=== PATIENT | female | born 1960 | race Hispanic/Latino ===

== ENCOUNTER 2024-10-04 21:52 | Inpatient (IN) | payer OTHER, SELFPAY ==
[2024-10-04] VITALS (9 sets, daily range): BP systolic 116–159; BP diastolic 60–78; BMI 23.9
[2024-10-04 17:40] LABS: % Basophils 0.9 % (0-2); % Eosinophils 2.7 % (0-6); % Immature Granulocytes 0.3 % (0-0.5); % Lymphocytes 26.3 % (20.5-51.1); % Monocytes 7.4 % (1.7-9.3); % Neutrophils 62.4 % (42.2-75.2); Absolute Basophils 0.1 10^3/uL (0-0.2); Absolute Eosinophils 0.2 10^3/uL (0-0.7); Absolute Monocytes 0.6 10^3/uL (0.1-0.6); Absolute Neutrophils 4.7 10^3/uL (1.4-6.5); Hematocrit 36.7 % (37.0-47.0); Hemoglobin 12.1 g/dL (12.0-16.0); Mean Corpuscular Volume 94.1 fL (81.0-99.0); Mean Platelet Volume 8.8 fL (7.4-10.4); Nucleated Red Blood Cells % 0 %; Platelet Count 255 10^3/uL (130-400); Red Cell Dist. Width 13.1 % (11.5-14.5); White Blood Cell Count 7.5 10^3/uL (4.8-10.8)
--- NOTE | 2024-10-04 17:41 | ED.GENMED ---
History of Present Illness
<Claire Taylor PA-C - Last Filed: 10/04/24 21:34>
General
Chief Complaint: Cardiac Symptoms
Source: patient
Exam Limitations: none
Time Seen by Provider: 10/04/24 17:40
Nursing documentation reviewed up to this point in time: agreed with
History of Present Illness
History of Present Illness:
63-year-old female with past medical history of hypertension presents emergency department today with concerns of left lateral neck discomfort and swelling, chest pain, and left upper extremity pain. Patient that symptoms started 2 days ago. She
has associated sinus pressure. Patient states that the pain from her neck will radiate down her left arm and feels as though radiate into her chest. The pain comes and goes at random. Patient has not had any fevers or chills. Patient has not had
any shortness of breath. Patient is from [place] and has been living here in [place] with her daughter recently. She denies any trauma to the head or neck, denies any trauma to the upper extremity. Patient denies any trouble swallowing.
Patient denies any exacerbation of pain with movement of her neck.
Review of Systems
<Claire Taylor PA-C - Last Filed: 10/04/24 21:34>
Review of Systems
All Other Systems: ROS reviewed and negative except as documented in HPI and ROS
Phy Exam
<Claire Taylor PA-C - Last Filed: 10/04/24 21:34>
Physical Exam
Physical Exam:
General: Patient is well appearing and in no acute distress; non-toxic
Skin: Warm and dry, no rashes or lesions
Head: Normocephalic, atraumatic. Erythema and tenderness noted surrounding the left mastoid process
Eyes: Sclera non-icteric. EOMs intact. PERRLA.
Ears: Bilateral TMs are non-erythematous, non-bulging. External auditory canals clear.
Mouth: Mild pharyngeal erythema noted, uvula midline
Cardiac: Regular rate and rhythm, no murmurs, no tenderness to palpation of the external chest wall
Peripheral Vascular: No lower extremity swelling or edema
Pulm: Normal respiratory effort, no wheezes, rales, or rhonchi
Musculoskeletal: No bony tenderness to palpation of the left upper extremity, no pain with passive ROM
Neuro: CN II-XII intact, no focal neurologic deficits.
Psychiatric: Appropriate mood and affect.
Course
<Claire Taylor PA-C - Last Filed: 10/04/24 21:34>
Orders/Labs/Results
Orders:
Orders
10/04/24 16:45
Electrocardiogram (*1) Urgent
Reason for Study: Palpitations
EKG- Treatment ONCE
10/04/24 17:32
CMP [Comprehensive Metabolic Panel] Urgent
Complete Blood Count/With Diff Urgent
Troponin I Urgent
10/04/24 18:13
CR Chest - 2 Views Urgent
Comment:
Reason For Exam: substernal chest pain
10/04/24 19:13
CT Neck With Iv Contrast Urgent
Comment:
Reason For Exam: left mastoid swelling/pain
10/04/24 21:10
Piperacillin/Tazo 3.375 Gram [Zosyn] 3.375 gram in 50 ml IV NOW
10/04/24 21:12
Mumps Virus IgG Urgent
Mumps Virus IgM [S] Urgent
Abnormal Lab Results
10/04/24
17:32
RBC 3.90 L 10^6/uL
(4.20-5.40)
Hct 36.7 L %
(37.0-47.0)
BUN 22 H mg/dl
(7-17)
Glucose 123 H mg/dl
(70-99)
Total Protein 8.3 H g/dl
(6.3-8.2)
11/24/24 17:32
10/04/24 17:32
Vital Signs
Initial and Last Documented VS:
Initial Vital Signs
Temp Pulse Resp BP Pulse Ox
98.3 F 73 20 150/78 99
10/04/24 16:50 10/04/24 16:50 10/04/24 16:50 10/04/24 16:50 10/04/24 16:50
Last Documented Vital Signs
Temp Pulse Resp BP Pulse Ox
98.3 F 71 16 130/69 98
10/04/24 16:50 10/04/24 19:45 10/04/24 19:45 10/04/24 19:37 10/04/24 19:45
<Gene Goldberg, DO - Last Filed: 10/04/24 21:32>
Orders/Labs/Results
Orders:
Orders
10/04/24 16:45
Electrocardiogram (*1) Urgent
Reason for Study: Palpitations
EKG- Treatment ONCE
10/04/24 17:32
CMP [Comprehensive Metabolic Panel] Urgent
Complete Blood Count/With Diff Urgent
Troponin I Urgent
10/04/24 18:13
CR Chest - 2 Views Urgent
Comment:
Reason For Exam: substernal chest pain
10/04/24 19:13
CT Neck With Iv Contrast Urgent
Comment:
Reason For Exam: left mastoid swelling/pain
10/04/24 21:10
Piperacillin/Tazo 3.375 Gram [Zosyn] 3.375 gram in 50 ml IV NOW
10/04/24 21:12
Mumps Virus IgG Urgent
Mumps Virus IgM [S] Urgent
Abnormal Lab Results
10/04/24
17:32
RBC 3.90 L 10^6/uL
(4.20-5.40)
Hct 36.7 L %
(37.0-47.0)
BUN 22 H mg/dl
(7-17)
Glucose 123 H mg/dl
(70-99)
Total Protein 8.3 H g/dl
(6.3-8.2)
10/04/24 17:32
10/04/24 17:32
Vital Signs
Initial and Last Documented VS:
Initial Vital Signs
Temp Pulse Resp BP Pulse Ox
98.3 F 73 20 150/78 99
10/04/24 16:50 10/04/24 16:50 10/04/24 16:50 10/04/24 16:50 10/04/24 16:50
Last Documented Vital Signs
Temp Pulse Resp BP Pulse Ox
98.3 F 71 16 130/69 98
10/04/24 16:50 10/04/24 19:45 10/04/24 19:45 10/04/24 19:37 10/04/24 19:45
Silvialt;Claire Taylor PA-C - Last Filed: 10/04/24 21:34>
MDM/Problems Addressed
Differential Diagnosis Includes:
ddx include ACS, aortic dissection, viral pharyngitis, mastoiditis, parotitis, mumps
MDM/Problems Addressed:
63-year-old female presents emergency department today with left lateral neck discomfort and swelling. She also has chest pain left upper extremity pain. On physical exam, there is erythema and mild swelling noted on the left lateral neck around
the mastoid process as well as swelling noted around the parotid glands bilaterally. Patient is maintaining her airway, she is no shortness of breath, she is hemodynamically stable. She is sent for CAT scan which demonstrates multiple inflammatory
changes within the neck involving the musculature of the neck. However there is no radiographic evidence of suggest mastoiditis. There is also soft tissue attenuation of the subcutaneous fat noted abutting the posterior margin of the left parotid
gland which may demonstrate inflammatory changes at the parotid secondary to infection. Discussed findings with family. Will start patient on Zosyn and refer for admission.
Chronic conditions affecting care:
n/a
Acute Exacerbation and/or Progression of Chronic Illness:
n/a
<Claire Taylor PA-C - Last Filed: 10/04/24 21:34>
*Pulse Oximetry
Patient hypoxic: no
*EKG
Interpreted by ED Provider?: Yes
EKG Intrepretation Date: 10/04/24
Interpretation: normal
Comparison EKG: no changes
Heart Rate: 71
Rate: normal
Rhythm: sinus
[place]: normal axis
Interval: normal interval
*Critical Care Note
Total Time (30-74mins, 75-104mins- exclusive of procedures): Not Applicable
Data Reviewed
Review of Other/Old Records Reveals: Records (No previous ER physician documentation to review) and Discharge Summary (No discharge summary in [facility] to)
Source: patient and records
<Claire Taylor PA-C - Last Filed: 10/04/24 21:34>
Patient Management
Escalation/DeEscalation of care consider admission/obs:
Patient referred for admission
ED Attending Note
<Claire Taylor PA-C - Last Filed: 10/04/24 21:34>
-
Portions of this chart may have been created with voice recognition software.� Occasional wrong word or��sound alike� substitutions may have occurred due to the inherent limitations of voice recognition software.
<Gene Goldberg DO - Last Filed: 10/04/24 21:32>
ED Attending Note
Patient seen and examined by attending physician: Yes
I performed a history and physical exam of patient and discussed management with resident, I reviewed resident's note and agree with documented findings and plan of care.: Yes
ED Attending Note:
I reviewed and agree with history and treatment plan by Claire Taylor. My exam revealed 63-year-old female in no acute distress. Lungs clear, no murmur, normal S1, S2. No S3, S4. TMs normal bilaterally. Mild erythema left posterior auricular
area. Normal EKG, normal troponin. Will image CT neck.
CT neck revealing inflammation of muscle, cellulitis possible proctitis. Will give IV Zosyn, admit to hospitalist for possible deep space infection.
Discharge Plan
Departure
Patient Disposition: Admit
Date of Disposition: 10/04/24
Time of Disposition: 21:15
Admit to: Med/Surg
Presentation/result/management discussed w/ accepting MD/DO: Hospitalist
Patient with high blood pressure during this ER visit?: Yes
Condition: Fair
Discharge Problem:
Neck infection, Chest pain
Referrals:
UNKNOWN - PT DOES,NOT KNOW [Family Provider] -
Interventions
Interventions:
*Risk Screen - Suicide Last Done: 10/04/24 16:50
*General Assessment Last Done: 10/04/24 16:50
*Neglect/Abuse Screening Last Done: 10/04/24 16:50
ED- Fall Risk Assessment Last Done: 10/04/24 17:16
*ED COVID-19 Vaccine History Last Done: 10/04/24 17:15
ED- Pulmonary Assessment Last Done: 10/04/24 17:16
ED- Cardiac Assessment Last Done: 10/04/24 17:16
Discharge Date and Time
Print Language: NIUEAN
[2024-10-04 17:57] LABS: ALT (SGPT) 27 U/L (0-35); AST (SGOT) 30 U/L (14-36); Albumin 4.8 g/dl (3.5-5.0); Alkaline Phosphatase 119 U/L (38-126); Blood Urea Nitrogen 22 mg/dl (7-17); Calcium 9.7 mg/dl (8.4-10.2); Carbon Dioxide 29 mmol/L (22-30); Chloride 102 mmol/L (98-107); Estimated Creatinine Clearance 74 ml/min; Glucose 123 mg/dl (70-99); Potassium 5.1 mmol/L (3.5-5.1); Sodium 142 mmol/L (135-145); Total Bilirubin 0.4 mg/dl (0.2-1.3); Total Protein 8.3 g/dl (6.3-8.2); eGFR > 60.00
[2024-10-04 18:09] LABS: Troponin I < 0.012 ng/ml
--- NOTE | 2024-10-04 21:38 | HPS.HSE ---
Family Physician
-
Family Physician: NOT KNOW UNKNOWN - PT DOES
Chief Complaint
-
left sided neck pain, left upper ext pain, and chest pain
History of Present Illness
63F HX HTN pw left sided neck pain, left upper ext pain, and chest pain past 2days
- denied recent injury
- denied any needel injection
- afebrile
- WBC is WNL
Medical History
Past Medical History
Past Medical History: Reports HTN
Past Surgical History: Reports None
Social History
Tobacco: Non-smoker
Alcohol: None
Family History
Family History: Not pertinent
Allergies / Home Medications
Allergies reflects when Allergies were last updated in [employer].
Home Medications with original date entered in [employer]
Allergy/Medication List:
Allergies
Allergy/AdvReac Type Severity Reaction Status Date / Time
No Known Allergies Allergy Verified 10/04/24 16:53
If medication reconciliation has not been performed, why?: Medication List N/A
Review of Systems
-
Constitutional: Reports No Symptoms
EENT: Reports See HPI
Respiratory: Reports No Symptoms
Cardiac: Reports No Symptoms
Abdomen/GI: Reports No Symptoms
: Reports No Symptoms
Musculoskeletal: Reports No Symptoms
Skin: Reports No Symptoms
Neurological: Reports No Symptoms
Endocrine: Reports No Symptoms
Hematologic/Lymphatic: Reports No Symptoms
Psych: Reports No Symptoms
Physical Exam
Vital Signs
Vital Signs
Temp Pulse Resp BP Pulse Ox
98.3 F 71 16 130/69 98
10/04/24 16:50 10/04/24 19:45 10/04/24 19:45 10/04/24 19:37 10/04/24 19:45
Physical Exam
General: Well Developed, Well Nourished and No Apparent Distress
HEENT: NormoCephalic, Moist mucous membranes and Atraumatic
Respiratory: Clear
Cardiac: S1/S2 and Regular Rhythm; No Murmur or Rub
GI: Soft, Non Tender, Non Distended and Normal Bowel Sounds; No Organomegaly
Rectal: Deferred by Provider
Musculoskeletal: No Clubbing, No Cyanosis and No Edema
Skin: No Rash
Neuro: Nonfocal/grossly intact
Laboratory Results
-
10/04/24 17:32
10/04/24 17:32
Laboratory Results
Total Bilirubin 0.4 mg/dl (0.2-1.3) 10/04/24 17:32
AST 30 U/L (14-36) 10/04/24 17:32
ALT 27 U/L (0-35) 10/04/24 17:32
Alkaline Phosphatase 119 U/L (38-126) 10/04/24 17:32
Troponin I < 0.012 ng/ml 10/04/24 17:32
Data Reviewed
-
Diagnostic Radiology: Report Reviewed by me
CT Scan: Report Reviewed by me
Lab Data: Labs Reviewed by me
Impression/Plan
-
Vital Signs
Temp Pulse Resp BP Pulse Ox
98.3 F 71 16 130/69 98
10/04/24 16:50 10/04/24 19:45 10/04/24 19:45 10/04/24 19:37 10/04/24 19:45
10/04/24 10/04/24
17:32 21:12
WBC 7.5
Creatinine 0.6
eGFR > 60.00
Troponin I < 0.012
Mumps Virus IgG Ab Pending
Mumps Virus IgM Ab Pending
CXR: No acute cardiopulmonary abnormality.
CT Neck With Iv Contrast
Nonspecific inflammatory changes/cellulitis in the lateral and posterior-lateral left neck, as described, without focal collection or abscess. Confluent soft tissue attenuation of the subcutaneous fat is noted abutting the posterior margin of the
left parotid gland, which demonstrates subtle increased attenuation compared to the right parotid gland. Likely reflecting secondary inflammatory changes of the parotid gland, as opposed to primary parotiditis.
No prior hospitalist admission:
ASSESSMENT & PLAN
Acute inflammatory cellulitis in deep space of lateral left neck without focal collection or abscess.
Suspect associated with reactive parotitis
DDX: Dental infection or dental caries
- Per radiologist ' We do not have the specialized dental equipment that a dentist has to see dental caries'
- Protecting AW
- agree with IV Zosyn
- PRN analgesia
- ENT consulted
HX HTN
DVT Px: SCD
Full code
IP [place]
[2024-10-04] MEDS: ZOSYN 50 IV (21:39)
[2024-10-05 00:02] VITALS: BMI 22.9
[2024-10-05] MEDS: KLONOPIN 1 MG PO (00:11)
[2024-10-05] MEDS: ZOSYN 50 IV ×2 (03:45→10:28)
[2024-10-05 07:20] VITALS: BP 92/50
[2024-10-05 07:50] LABS: % Basophils 0.8 % (0-2); % Eosinophils 5.3 % (0-6); % Immature Granulocytes 0.3 % (0-0.5); % Lymphocytes 34.8 % (20.5-51.1); % Monocytes 11.3 % (1.7-9.3); % Neutrophils 47.5 % (42.2-75.2); Absolute Basophils 0.1 10^3/uL (0-0.2); Absolute Eosinophils 0.4 10^3/uL (0-0.7); Absolute Lymphocytes 2.3 10^3/uL (1.2-3.4); Absolute Monocytes 0.8 10^3/uL (0.1-0.6); Absolute Neutrophils 3.2 10^3/uL (1.4-6.5); Hematocrit 35.9 % (37.0-47.0); Hemoglobin 11.7 g/dL (12.0-16.0); Mean Corp Hgb Conc. 32.6 g/dL (33.0-37.0); Mean Corpuscular Hgb 30.5 pg (27.0-31.0); Mean Corpuscular Volume 93.5 fL (81.0-99.0); Mean Platelet Volume 9.4 fL (7.4-10.4); Nucleated Red Blood Cells % 0 %; Platelet Count 247 10^3/uL (130-400); Red Blood Cell Count 3.84 10^6/uL (4.20-5.40); Red Cell Dist. Width 13.3 % (11.5-14.5); White Blood Cell Count 6.7 10^3/uL (4.8-10.8)
[2024-10-05 08:23] LABS: ALT (SGPT) 24 U/L (0-35); AST (SGOT) 27 U/L (14-36); Albumin 4.2 g/dl (3.5-5.0); Alkaline Phosphatase 117 U/L (38-126); Blood Urea Nitrogen 18 mg/dl (7-17); Calcium 9.2 mg/dl (8.4-10.2); Carbon Dioxide 27 mmol/L (22-30); Chloride 103 mmol/L (98-107); Estimated Creatinine Clearance 63 ml/min; Glucose 91 mg/dl (70-99); Potassium 4.3 mmol/L (3.5-5.1); Sodium 139 mmol/L (135-145); Total Bilirubin 0.9 mg/dl (0.2-1.3); Total Protein 7.3 g/dl (6.3-8.2); eGFR > 60.00
--- NOTE | 2024-10-05 11:33 | CM ---
Reviewed the chart notes and spoke with the patient and her daughter at the bedside. Patient's daughter acted as interperter for the patient. The patient is currently residing with her daughter in a one story home with three steps to enter. The
patient reports no DME/VN/SNF in the past. The patient confirmed [facility] CM continues to be available to patient/family and is monitoring medical plan for needs at discharge.
Plan: Discharge to home when medically stable. No needs anticipated.
--- NOTE | 2024-10-05 12:31 | W.PN.ENT ---
Today's Communication
-
seen at bedside
Impression / Plan
-
pt seems to have left parotitis
Augmentin should work and heat/lemon wedges should be helpful
Subjective Data
-
left neck/facial swelling
Objective Data
-
Vital Signs
Temp Pulse Resp BP Pulse Ox
99.7 F 67 16 92/50 94
10/05/24 07:20 10/05/24 07:20 10/05/24 07:20 10/05/24 07:20 10/05/24 07:20
Intake & Output
10/04/24 10/05/24 10/06/24
06:59 06:59 06:59
Intake:
Oral fluids 240 / 240
Other:
Number of approximated MODERATE 2
amounts of urine
Lab Results
10/05/24 06:31
10/05/24 06:31
Calcium 9.2 mg/dl (8.4-10.2) 10/05/24 06:31
Total Bilirubin 0.9 mg/dl (0.2-1.3) 10/05/24 06:31
AST 27 U/L (14-36) 10/05/24 06:31
ALT 24 U/L (0-35) 10/05/24 06:31
Alkaline Phosphatase 117 U/L (38-126) 10/05/24 06:31
Physical Exam
-
tail of parotid swelling
no fluctuance
Chest: Clear
Respiratory: Clear
Data Reviewed
-
Radiology Results: Report Reviewed
--- NOTE | 2024-10-05 13:27 | W.DS.TRANS ---
DC Summary - [employer]
-
Discharge Instructions:
Discharge Diagnosis/Procedures Acute parotitis
Diet Regular
Instructions:
Stand-Alone Forms:
Changes to Home Medications: Yes
Discharge Medications:
DC Medications w/original date entered in [email or web address]
clonazepam 1 mg tablet 1 mg PO HS 10/04/24
nebivolol 2.5 mg tablet 2.5 mg PO DAILY 10/04/24
olmesartan 20 mg tablet 10 mg PO HS 10/04/24
amoxicillin 875 mg-potassium clavulanate 125 mg tablet 1 tab PO Q12 #10 tabs 10/05/24
Home Medication Changes
Antibiotic for additional 5 days.
Pending Results: No
[2024-10-05] MEDS: AUGMENTIN 875 MG/125 MG 1 TABLET PO (13:33)
[2024-10-05 14:17] VITALS: BP 130/58
[2024-10-05 15:40] LABS: Mumps Virus IgG Positive
--- NOTE | 2024-10-05 18:23 | CON.MD ---
Consultation - Medical
-
Chief complaint: Left facial and neck swelling
History of present illness: This patient is a 63-year-old woman from [place] who currently lives in [place] with her daughter. She is otherwise healthy but presents with new onset left cheek and neck swelling in the area of the left parotid
gland. The patient has not had similar symptoms in the past. The gland is tender. She was admitted yesterday and begun on intravenous antibiotics. She feels better at this point. He is eating and drinking without significant problem. She has
not had a fever. She has a history of hypertension which is well-controlled.
Past medical history:
Medical problems: History of hypertension, history of neck infection, history of chest pain
Allergies: The patient has no known drug allergies
Home medications: Clonazepam 1 mg p.o. nightly, nebivolol 2.5 mg p.o. daily, olmesartan 10 mg p.o. nightly
Hospitalizations: The patient is currently hospitalized for left parotitis
Past surgical history: Noncontributory
Review of systems: Positive for left cheek/neck tenderness, negative for current chest pain, negative for abdominal pain, left arm discomfort yesterday
Physical examination:
Head: Atraumatic and normocephalic
Eyes: Extraocular movements are intact, pupils are equal and reactive to light
Nose: Normal to examination
Ears: Normal to examination
Oral cavity/oropharynx: Normal without signs of infection
Neck: The patient has left upper neck tenderness and swelling
Thyroid gland: Normal
Cranial nerves: 2 through 12 are intact
Salivary glands: Left tail of parotid gland is swollen and slightly tender. No fluctuance is palpable.
Impression/plan: this 64-year-old woman has new onset left parotitis. I discussed this with the patient and her daughter who worked as a business analyst intern. This could be viral as there is a question as to whether she is vaccinated for mumps. It is also
possible this is bacterial. Augmentin should be good coverage in terms of oral antibiotic given that most of these infections are due to Staphylococcus aureus. I also discussed with the patient and her daughter that sucking on lemon wedges or sour
candy can get the saliva flowing. A heating pad can be helpful. She can follow-up in the office as needed.
[2024-10-05 18:52] LABS: Hepatitis C Antibody Negative (Negative)
[2024-10-07 00:29] LABS: Mumps Virus IgM 0.24 IV (<=0.79)
== END 2024-10-05 14:29 | disposition home or self-care (01) | DRG 155 ==
LOC: 2 NORTH 21:52
PROVIDERS: Physician Assistant; ADMITTING PHYSICIAN Internal Medicine; ATTENDING PHYSICIAN Internal Medicine; EMERGENCY PHYSICIAN Emergency Medicine; OTHER PHYSICIAN Otolaryngology Facial Plastic Surgery
DX: K11.21 Acute sialoadenitis (principal); L03.221 Cellulitis of neck; I10 Essential (primary) hypertension
CPT/HCPCS: 70491; 71046; 80053; 84484; 85025; 86735; 86803; 93005; 96374; 99285; Q9967